=== PATIENT | male | born 1955 | race Caucasian/White ===

== ENCOUNTER 2020-09-22 15:47 | Outpatient (REF) | payer OTHER, SELFPAY ==
--- NOTE | ~2020-09-22 | XR_ITS ---
EXAMINATION: XR HIP, RIGHT CLINICAL INFORMATION: Pain COMPARISON: None TECHNIQUE: Two views of the right hip. FINDINGS: Bone alignment is normal. No fracture or dislocation is seen. There is severe right hip arthritis with joint space narrowing, osteophyte formation and some subchondral cyst formation. There is a sclerotic density that projects over the right lateral sacrum. It is uncertain whether this is in the soft tissues or bone. There is evidence of atherosclerotic disease. XR/XR hip RT min 2V IMPRESSION: Severe right hip arthritis.
== END 2020-09-22 15:48 | disposition home or self-care (01) ==
LOC: HO.HMGCX 15:47
PROVIDERS: PCP Internal Medicine; Visit Provider Internal Medicine
DX: M25.551 Pain in right hip (principal)
CPT/HCPCS: 73502

== ENCOUNTER 2020-10-01 08:25 | Outpatient (REF) | payer OTHER, SELFPAY ==
--- NOTE | ~2020-10-01 | XR_ITS ---
EXAMINATION: XR PELVIS CLINICAL INFORMATION: Pain. COMPARISON: Right hip study of 09/22/2020 and lumbar spine study of 02/09/2016 TECHNIQUE: AP view of the pelvis. FINDINGS: There is no evidence of acute fracture or diastasis of the pelvis. There is severe degenerative disc disease seen at the L4-L5 level with sacralization of L5. There is sclerosis seen involving the articulation with the right transverse process and the right sacroiliac joint. Soft tissue density with calcification again noted overlying the right iliac bone. There is some degenerative change of the right hip with collar spurring and some narrowing of the superior joint space with subchondral cyst formation. 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
== END 2020-10-01 08:26 | disposition home or self-care (01) ==
LOC: HO.HOSX 08:25
PROVIDERS: Visit Provider Orthopaedic Surgery
DX: M16.0 Bilateral primary osteoarthritis of hip (principal)
CPT/HCPCS: 72170

== ENCOUNTER 2025-01-31 06:17 | Day surgery (SDC) | payer OTHER, SELFPAY ==
[2025-01-29 13:25] VITALS: BMI 22.5
--- NOTE | 2025-01-30 08:41 | P.CONAN_ITS ---
Documented by User: Judy Huffman NP 01/30/25 08:41 HPI - Anesthesia Eval Consult details Narrative: 69yo M for Colonoscopy [facility] Active Problems Active Problems: All Active Problems Primary osteoarthritis of both hips (Acute) Past Medical History Medical History BPH (benign prostatic hyperplasia) High cholesterol Surgical History Surgical History Hx of cataract extraction H/O colonoscopy History of carpal tunnel surgery Social History Social History Are you a primary child caregiver private home to a significant other at home: No Do you presently have visiting nurse or other home services: No Alcohol intake: never Patient Tobacco Use Status: Never used Tobacco Have you been hit, kicked, punched, or otherwise hurt by someone within the past year? If so, by whom?: No Are you DNR?: No Advance Directives: No Advance Directives Information Provided: Yes Current occupational status: employed Current occupation: left [employer] Allergies Allergy/AdvReac Type Severity Reaction Status Date / Time No Known Allergies Allergy Verified 01/31/25 06:24 Home Medications ?Medication ?Instructions ?Recorded ?Confirmed ?Last Taken ?Type simvastatin 20 mg tablet 20 mg PO DAILY 10/01/2007/21 Unknown History tamsulosin 0.4 mg capsule 0.4 mg PO BEDTIME 01/31/25 1 04/03/24 Unknown History Exam Height,Weight and Vital Signs: Height 5 ft 7.5 in Weight 66.224 kg Assessment and Plan Assessment Anesthesia Assessment: Chart Reviewed Documented by User: Sanjana Lopez MD 01/31/25 07:26 [facility] Past Medical History Medical History BPH (benign prostatic hyperplasia) High cholesterol Surgical History Surgical History Hx of cataract extraction H/O colonoscopy History of carpal tunnel surgery History of Problems with Anesthesia: No Social History Social History Are you a primary child caregiver private home to a significant other at home: No Do you presently have visiting nurse or other home services: No Alcohol intake: never Patient Tobacco Use Status: Never used Tobacco Have you been hit, kicked, punched, or otherwise hurt by someone within the past year? If so, by whom?: No Are you DNR?: No Advance Directives: No Advance Directives Information Provided: Yes Current occupational status: employed Current occupation: left Meds Allergies Allergy/AdvReac Type Severity Reaction Status Date / Time No Known Allergies Allergy Verified 01/31/25 06:24 Home Medications ?Medication ?Instructions ?Recorded ?Confirmed ?Last Taken ?Type simvastatin 20 mg tablet 20 mg PO DAILY 10/01/2007/21 Unknown History tamsulosin 0.4 mg capsule 0.4 mg PO BEDTIME 01/31/25 1 04/03/24 Unknown History Exam Airway Mallampati Class: III TM Dist: >3cm Neck ROM: Full Loose/Missing/Broken Teeth: No Heart: RRR Lungs: CTA Assessment and Plan Assessment Anesthesia Assessment: Anesthesia Plan Discussed Final Anesthetic Review History of Problems with Anesthesia: No NPO: Yes ASA Class: II Final Preanesthetic Review: Meds/Allgs Chart Reviewed, Consent Obtained/Reviewed and Anes Risks/Benef Reviewed Patient Risk: Low Procedure Risk: Low Anesthetic Plan Anesthetic Plan: MAC: Disposition: Standard PACU
[2025-01-31 06:36] VITALS: BMI 22.4
[2025-01-31] MEDS: Lactated Ringers 1,000 ML 100 ML IVCONT (06:41)
[2025-01-31 06:47] VITALS: BP 119/80; PULSE 72; RESP 18; TEMP 36.7; O2SAT 96
--- NOTE | 2025-01-31 07:41 | MHC.SHP ---
Pre-Procedural Eval Section A - 24 Hr Update-Section A only Date of Service: 01/31/25 Section B - Complete if H&P > 30 days Chief Complaint: screening Details of Present Illness: see H&P no changes Relevant Family History (Specify if Yes): No Relevant Social History: None Present Medications: see Short Stay Collaborative assessment Medical History: No relevant PMH Allergies: Allergies Allergy/AdvReac Type Severity Reaction Status Date / Time No Known Allergies Allergy Verified 01/31/25 06:24 Review of Systems Sugical H&P ROS: Negative: Constitution, Cardiovascular, Respiratory, Neurological, Psychiatric, Hem-Onc, Allergic/Immunologic, Gastrointestinal, Genitourinary, Musculoskeletal, Integumentary, Endocrine and Eyes/Ears/Nose/Throat Exam Surgical H&P Exam: Normal: HEENT, Normal: Heart, Normal: Lungs, Normal: Extremities, Normal: Abdomen, Normal: Skin and Normal: Neurological Plan Diagnosis/Plan: Unchanged I have reviewed the history and physical and performed a pertinent physical examination on my patient. No changes have occurred unless specified. Time Spent With Patient Time: Total time managing care of this patient today ____ minutes.
[2025-01-31 08:38] VITALS: BP 103/60; PULSE 67; RESP 18; TEMP 36.1; O2SAT 95
[2025-01-31 08:53] VITALS: BP 106/68; PULSE 50; RESP 14; O2SAT 99
[2025-01-31 09:07] VITALS: BP 101/72; PULSE 62; RESP 16; TEMP 36.3; O2SAT 98
--- NOTE | 2025-02-04 07:36 | OP_ITS ---
DATE OF SERVICE: 01/31/2025 SURGEON: Rex Mccullough MD INDICATIONS: Colon cancer screening. PREOPERATIVE DIAGNOSIS: POSTOPERATIVE DIAGNOSIS: PROCEDURE PERFORMED: Colonoscopy to the cecum with biopsy and snare polypectomy. ESTIMATED BLOOD LOSS: COMPLICATIONS: ANESTHESIA: Monitored anesthesia care. ASSISTANTS: SPECIMENS: DESCRIPTION OF PROCEDURE: A history and physical was performed. The risks and benefits of the procedure were explained to the patient and informed consent was obtained. The patient was placed in the left lateral decubitus position. A digital rectal exam was performed and was found to be normal. The Olympus pediatric video colonoscope was introduced into the rectum and advanced to the cecum. The cecum was identified by transillumination, palpation, and identification of the ileocecal valve. Examination was performed. The scope was removed. He tolerated the procedure well and was returned to the recovery area in stable condition. FINDINGS: The terminal ileum was not examined. The visualized colonic mucosa was normal. The quality of the prep was good. There were 2 polyps identified and removed with a combination of cold snare and biopsy forceps. These were located at 100 cm and at 60 cm, both were less than 10 mm. Retroflexed examination was normal. IMPRESSION: Colon polyps. RECOMMENDATION: Follow up the biopsy results. MD CARLENE Aguirre/JUAN LUISL / [id number]
== END 2025-01-31 09:54 | disposition home or self-care (01) ==
PROVIDERS: PCP Internal Medicine; Visit Provider Internal Medicine Gastroenterology
PROC: 0DJD8ZZ Inspection of Lower Intestinal Tract, Via Natural or Artificial Opening Endoscopic (ICD-10-PCS; CPT 45378; principal; 2025-01-31 07:30)
DX: Z12.11 Encounter for screening for malignant neoplasm of colon (principal); D12.3 Benign neoplasm of transverse colon; D12.4 Benign neoplasm of descending colon; E78.00 Pure hypercholesterolemia, unspecified; N40.0 Benign prostatic hyperplasia without lower urinary tract symptoms; Z80.42 Family history of malignant neoplasm of prostate; Z80.1 Family history of malignant neoplasm of trachea, bronchus and lung; Z79.82 Long term (current) use of aspirin; Z79.899 Other long term (current) drug therapy
CPT/HCPCS: 45385; 45380; 88305; J2003; J2704